=== PATIENT | female | born 1955 | race Caucasian/White ===

== ENCOUNTER 2017-10-22 08:52 | Observation (INO) | payer OTHER ==
[2017-10-22] MEDS: morphine 4 MG/ML VIAL IV (09:32)
[2017-10-22] MEDS: ONDANSETRON 4 MG INJ IV (09:32)
[2017-10-22 09:45] LABS: ADD MAN DIFF? NO
[2017-10-22 09:46] LABS: BASOPHIL # 0.1 10^3/ul (0.0-0.1); BASOPHILS % 0.6 % (0.0-2.0); EOSINOPHILS # 0.1 10^3/ul (0.0-0.5); HEMATOCRIT 45.8 % (37.0-47.0); HEMOGLOBIN 14.7 g/dl (12.0-16.0); LYMPHOCYTES # 1.8 10^3/ul (0.8-2.9); LYMPHOCYTES % 18.5 % (15.0-51.0); MEAN CORPUSCULAR HEMOGLOBIN 29.8 pg (29.0-33.0); MEAN CORPUSCULAR HGB CONC 32.1 g/dl (32.0-37.0); MEAN CORPUSCULAR VOLUME 92.7 fl (82.0-101.0); MEAN PLATELET VOLUME 10.4 fl (7.4-10.4); MONOCYTE # 0.5 10^3/ul (0.3-0.9); MONOCYTES % 4.9 % (0.0-11.0); NEUTROPHIL # 7.1 10^3/ul (1.6-7.5); NEUTROPHILS % 72.7 % (39.0-77.0); PLATELET COUNT 303 10^3/UL (140-415); RED BLOOD COUNT 4.94 10^6/ul (4.20-5.40)
[2017-10-22 09:46] LABS: WHITE BLOOD COUNT 9.7 10^3/ul (4.8-10.8)
[2017-10-22] MEDS: HYDROmorphONE 1 MG/ML SYG IV ×2 (09:51→12:31)
[2017-10-22 10:09] LABS: ALANINE AMINOTRANSFERASE 38 IU/L (13-69); ALBUMIN 4.4 g/dl (3.3-4.9); ALBUMIN/GLOBULIN RATIO 0.93; ALKALINE PHOSPHATASE 138 IU/L (42-121); ANION GAP 18 (8-16); ASPARTATE AMINO TRANSFERASE 69 IU/L (15-46); BILIRUBIN,INDIRECT 0.3 mg/dl (0-1.1); BILIRUBIN,TOTAL 0.3 mg/dl (0.2-1.3); BLOOD UREA NITROGEN 13 mg/dl (7-20); CALCIUM 11.3 mg/dl (8.4-10.2); CARBON DIOXIDE 28 mmol/L (21-31); CHLORIDE 98 mmol/L (97-110); CREATININE 1.17 mg/dl (0.44-1.00); GLUCOSE 190 mg/dl (70-220); LIPASE 38 U/L (23-300); SODIUM 139 mmol/L (135-144); TOTAL PROTEIN 9.1 g/dl (6.1-8.1)
[2017-10-22 10:27] LABS: TROPONIN-I < 0.012 ng/ml (0.00-0.12)
[2017-10-22] MEDS ORDERED: ACETAMINOPHEN 325 MG TAB PO ×2 (11:30→14:00)
[2017-10-22] MEDS ORDERED: ONDANSETRON 4 MG INJ IV ×2 (11:30→14:00)
[2017-10-22] MEDS ORDERED: ACETAMINOPHEN 1000MG/100ML IV 100 ML IVPB (12:00)
[2017-10-22] MEDS: ACETAMINOPHEN 1000MG/100ML IV 100 ML IVPB ×3 (13:56→23:59)
[2017-10-22] MEDS: DEXAMETHASONE 10 MG/ML 1 ML INJ IV ×3 (13:57→23:59)
[2017-10-22] MEDS: HYDROmorphONE 0.2 MG/ML PCA IV (13:59)
[2017-10-22] MEDS ORDERED: NACL 0.9% 3 ML SYG IV (14:00)
[2017-10-22] MEDS ORDERED: HYDROCODONE/APAP (5/325) TAB PO ×2 (14:00)
[2017-10-22] MEDS: BENAZEPRIL 20 MG TAB PO (14:00)
[2017-10-22] MEDS ORDERED: BISACODYL 10 MG SUPP PR (14:00)
[2017-10-22] MEDS ORDERED: GLUCOSE GEL 15 GRAM TUBE PO ×2 (14:00)
[2017-10-22] MEDS ORDERED: ACETAMINOPHEN 650 MG SUPP PR (14:00)
[2017-10-22] MEDS ORDERED: GLUCAGON 1 MG INJ IM (14:00)
[2017-10-22] MEDS ORDERED: DEXTROSE 50% 50 ML SYRINGE IV ×2 (14:00)
[2017-10-22] MEDS ORDERED: GLUCOSE GEL 15 GRAM TUBE BUCCAL (14:00)
[2017-10-22] MEDS ORDERED: morphine 2 MG INJ IV (14:00)
[2017-10-22] MEDS ORDERED: DOCUSATE SODIUM 100 MG CAP PO (14:00)
[2017-10-22 17:31] LABS: HEMOGLOBIN A1C 6.9 % (0-5.9)
[2017-10-22] MEDS: INSULIN ASPART [NOVOLOG] 3 ML PEN SC (18:25)
[2017-10-22] MEDS: ATORVASTATIN 20 MG TAB PO (20:36)
[2017-10-22] MEDS: GABAPENTIN 300 MG CAP PO (20:36)
[2017-10-22] MEDS: INSULIN GLARGINE [LANtus] 3 ML PEN SC (22:07)
[2017-10-23] MEDS: HYDROmorphONE 0.2 MG/ML PCA IV ×2 (00:05→11:15)
[2017-10-23] MEDS: PANTOPRAZOLE 40 MG INJ IV (05:47)
[2017-10-23] MEDS: DEXAMETHASONE 10 MG/ML 1 ML INJ IV ×3 (05:47→18:16)
[2017-10-23] MEDS: ACETAMINOPHEN 1000MG/100ML IV 100 ML IVPB ×3 (05:47→18:12)
[2017-10-23] MEDS: LEVOTHYROXINE 125 MCG TAB PO (06:02)
[2017-10-23] MEDS: INSULIN ASPART [NOVOLOG] 3 ML PEN SC ×3 (08:56→18:09)
[2017-10-23] MEDS: BENAZEPRIL 20 MG TAB PO (09:02)
[2017-10-23] MEDS: GABAPENTIN 300 MG CAP PO ×3 (09:02→21:21)
[2017-10-23] MEDS: ASPIRIN (EC) 81 MG TAB PO (09:02)
[2017-10-23 09:23] LABS: ALANINE AMINOTRANSFERASE 33 IU/L (13-69); ALBUMIN 3.7 g/dl (3.3-4.9); ALBUMIN/GLOBULIN RATIO 0.88; ALKALINE PHOSPHATASE 156 IU/L (42-121); ANION GAP 17 (8-16); ASPARTATE AMINO TRANSFERASE 95 IU/L (15-46); BILIRUBIN,INDIRECT 0.3 mg/dl (0-1.1); BILIRUBIN,TOTAL 0.3 mg/dl (0.2-1.3); BLOOD UREA NITROGEN 15 mg/dl (7-20); CALCIUM 10.2 mg/dl (8.4-10.2); CARBON DIOXIDE 24 mmol/L (21-31); CHLORIDE 100 mmol/L (97-110); CHOL/HDL RATIO 3.3 RATIO; CHOLESTEROL 137 mg/dl (100-200); CREATININE 0.84 mg/dl (0.44-1.00); GLUCOSE 196 mg/dl (70-220); HDL CHOLESTEROL 41 mg/dl (35-98); LDL CHOLESTEROL,CALCULATED 67 mg/dl; MAGNESIUM 2.1 mg/dl (1.7-2.5); PHOSPHORUS 4.4 mg/dl (2.5-4.9); SODIUM 136 mmol/L (135-144); TOTAL PROTEIN 7.9 g/dl (6.1-8.1); TRIGLYCERIDES 147 mg/dl (0-149)
[2017-10-23 09:27] LABS: HEMOGLOBIN A1C 6.8 % (0-5.9)
[2017-10-23 09:50] LABS: FREE THYROXINE INDEX (Calc) 2.82 ug/ml (0.65-3.89); T3 UPTAKE 33.2 % (23.5-40.5); T4 (THYROXINE) 8.5 ug/dl (5.5-11.0)
[2017-10-23 10:03] LABS: THYROID STIMULATING HORMONE 0.973 MIU/L (0.465-4.680)
[2017-10-23] MEDS ORDERED: METHOCARBAMOL 500 MG TAB PO (11:30)
[2017-10-23] MEDS: ATORVASTATIN 20 MG TAB PO (21:21)
[2017-10-23] MEDS: INSULIN GLARGINE [LANtus] 3 ML PEN SC (21:21)
[2017-10-23] MEDS: hydrALAzine 20 MG INJ IV (21:28)
[2017-10-24] MEDS: ACETAMINOPHEN 1000MG/100ML IV 100 ML IVPB ×5 (00:43→23:31)
[2017-10-24] MEDS: DEXAMETHASONE 10 MG/ML 1 ML INJ IV ×5 (00:43→23:31)
[2017-10-24 05:31] LABS: ADD MAN DIFF? NO
[2017-10-24 05:42] LABS: WHITE BLOOD COUNT 11.5 10^3/ul (4.8-10.8)
[2017-10-24 05:42] LABS: BASOPHILS % 0.3 % (0.0-2.0); HEMOGLOBIN 13.7 g/dl (12.0-16.0); LYMPHOCYTES # 0.9 10^3/ul (0.8-2.9); LYMPHOCYTES % 7.9 % (15.0-51.0); MEAN CORPUSCULAR HGB CONC 32.6 g/dl (32.0-37.0); MEAN CORPUSCULAR VOLUME 92.1 fl (82.0-101.0); MEAN PLATELET VOLUME 10.7 fl (7.4-10.4); MONOCYTE # 0.2 10^3/ul (0.3-0.9); MONOCYTES % 2.1 % (0.0-11.0); NEUTROPHIL # 10.1 10^3/ul (1.6-7.5); NEUTROPHILS % 87.5 % (39.0-77.0); PLATELET COUNT 280 10^3/UL (140-415); RED BLOOD COUNT 4.56 10^6/ul (4.20-5.40); RED CELL DISTRIBUTION WIDTH 13.1 % (11.5-14.5)
[2017-10-24 06:07] LABS: ANION GAP 16 (8-16); BLOOD UREA NITROGEN 17 mg/dl (7-20); CALCIUM 9.2 mg/dl (8.4-10.2); CARBON DIOXIDE 23 mmol/L (21-31); CHLORIDE 103 mmol/L (97-110); CREATININE 0.76 mg/dl (0.44-1.00); GLUCOSE 295 mg/dl (70-220); POTASSIUM 4.4 mmol/L (3.5-5.1); SODIUM 138 mmol/L (135-144)
[2017-10-24] MEDS: PANTOPRAZOLE 40 MG INJ IV (06:07)
[2017-10-24] MEDS: LEVOTHYROXINE 125 MCG TAB PO (06:12)
[2017-10-24] MEDS: BENAZEPRIL 20 MG TAB PO (09:04)
[2017-10-24] MEDS: GABAPENTIN 300 MG CAP PO ×3 (09:05→20:57)
[2017-10-24] MEDS: ASPIRIN (EC) 81 MG TAB PO (09:05)
[2017-10-24] MEDS: CELECOXIB 100 MG CAP PO ×2 (09:55→20:56)
[2017-10-24] MEDS: metFORMIN 500 MG TAB PO ×2 (09:56→17:57)
[2017-10-24] MEDS: morphine (ER) 30 MG TAB PO ×2 (09:56→20:57)
[2017-10-24] MEDS: MAGNESIUM HYDROXIDE 30ML CUP PO (09:57)
[2017-10-24] MEDS: HYDROmorphONE 2 MG TAB PO ×2 (12:16→16:11)
[2017-10-24] MEDS: NPH, HUMAN INSULIN ISOPHANE 3ML VIAL SC ×3 (12:33→23:47)
[2017-10-24 13:02] LABS: HEPATITIS B SURFACE ANTIGEN NEGATIVE (NEGATIVE)
[2017-10-24 13:19] LABS: HEPATITIS C VIRAL ANTIBODY NEGATIVE (NEGATIVE)
[2017-10-24] MEDS: INSULIN ASPART [NOVOLOG] 3 ML PEN SC ×2 (14:35→18:07)
[2017-10-24] MEDS: ATORVASTATIN 20 MG TAB PO (20:57)
[2017-10-24] MEDS: INSULIN GLARGINE [LANtus] 3 ML PEN SC (21:05)
[2017-10-25] MEDS: ACETAMINOPHEN 1000MG/100ML IV 100 ML IVPB ×4 (05:35→23:04)
[2017-10-25] MEDS: PANTOPRAZOLE 40 MG INJ IV (05:35)
[2017-10-25] MEDS: DEXAMETHASONE 10 MG/ML 1 ML INJ IV ×2 (05:35→20:47)
[2017-10-25] MEDS: NPH, HUMAN INSULIN ISOPHANE 3ML VIAL SC ×2 (05:48→12:00)
[2017-10-25 05:56] LABS: ANION GAP 18 (8-16); BLOOD UREA NITROGEN 19 mg/dl (7-20); CALCIUM 10.2 mg/dl (8.4-10.2); CARBON DIOXIDE 27 mmol/L (21-31); CHLORIDE 101 mmol/L (97-110); CREATININE 0.71 mg/dl (0.44-1.00); GLUCOSE 149 mg/dl (70-220); POTASSIUM 4.7 mmol/L (3.5-5.1); SODIUM 141 mmol/L (135-144)
[2017-10-25] MEDS: LEVOTHYROXINE 125 MCG TAB PO (06:07)
[2017-10-25] MEDS: CELECOXIB 100 MG CAP PO ×2 (09:27→20:47)
[2017-10-25] MEDS: metFORMIN 500 MG TAB PO ×2 (09:27→17:39)
[2017-10-25] MEDS: GABAPENTIN 300 MG CAP PO ×3 (09:27→20:47)
[2017-10-25] MEDS: ASPIRIN (EC) 81 MG TAB PO (09:27)
[2017-10-25] MEDS: morphine (ER) 30 MG TAB PO ×2 (09:27→20:47)
[2017-10-25] MEDS: BENAZEPRIL 20 MG TAB PO (09:28)
[2017-10-25] MEDS: INSULIN ASPART [NOVOLOG] 3 ML PEN SC ×3 (09:29→17:40)
[2017-10-25] MEDS: ATORVASTATIN 20 MG TAB PO (20:47)
[2017-10-25] MEDS ORDERED: NPH, HUMAN INSULIN ISOPHANE 3ML VIAL SC (21:00)
[2017-10-26] MEDS: ACETAMINOPHEN 1000MG/100ML IV 100 ML IVPB ×2 (05:03→12:42)
[2017-10-26] MEDS: PANTOPRAZOLE (EC) 40 MG TAB PO (05:03)
[2017-10-26] MEDS: LEVOTHYROXINE 125 MCG TAB PO (05:04)
[2017-10-26 06:45] LABS: ANION GAP 17 (8-16); BLOOD UREA NITROGEN 24 mg/dl (7-20); CALCIUM 9.8 mg/dl (8.4-10.2); CARBON DIOXIDE 26 mmol/L (21-31); CHLORIDE 101 mmol/L (97-110); CREATININE 0.83 mg/dl (0.44-1.00); GLUCOSE 165 mg/dl (70-220); POTASSIUM 4.5 mmol/L (3.5-5.1); SODIUM 139 mmol/L (135-144)
[2017-10-26] MEDS: ASPIRIN (EC) 81 MG TAB PO (09:07)
[2017-10-26] MEDS: GABAPENTIN 300 MG CAP PO ×2 (09:07→12:41)
[2017-10-26] MEDS: metFORMIN 500 MG TAB PO (09:07)
[2017-10-26] MEDS: DEXAMETHASONE 10 MG/ML 1 ML INJ IV (09:08)
[2017-10-26] MEDS: BENAZEPRIL 20 MG TAB PO (09:08)
[2017-10-26] MEDS: CELECOXIB 100 MG CAP PO (09:08)
[2017-10-26] MEDS: INSULIN ASPART [NOVOLOG] 3 ML PEN SC ×2 (09:10→12:42)
[2017-10-26] MEDS: morphine (ER) 30 MG TAB PO (09:42)
[2017-10-26] MEDS: HYDROmorphONE 2 MG TAB PO (15:12)
== END 2017-10-26 15:45 | disposition home or self-care (01) ==
LOC: E/R 08:52 → MS1 11:22
DX: M54.5 Low back pain (principal); C50.912 Malignant neoplasm of unspecified site of left female breast; Z95.0 Presence of cardiac pacemaker; I10 Essential (primary) hypertension; E11.9 Type 2 diabetes mellitus without complications; E78.5 Hyperlipidemia, unspecified
CPT/HCPCS: 36415; 72128; 72131; 74176; 78306; 80048; 80053; 80061; 82962; 83036; 83690; 83735; 84100; 84436; 84443; 84479; 84484; 85025; 86803; 87340; 93005; 96374; 96375; 96376; 97162; 99285-25; A9503

== ENCOUNTER 2017-10-27 16:02 | Inpatient (IN) | payer OTHER ==
[2017-10-27 19:10] LABS: URINE PH (Dip) POC 5.5 (5.0-8.5)
[2017-10-27 19:10] LABS: URINE BLOOD (Dip) POC 2+ (NEGATIVE); URINE KETONES (Dip) POC Negative (NEGATIVE); URINE LEUKOCYTE EST (Dip) POC Negative (NEGATIVE); URINE NITRITE (Dip) POC Negative (NEGATIVE); URINE TOTAL PROTEIN POC 2+ (NEGATIVE)
[2017-10-27] MEDS: HYDROmorphONE 1 MG/ML SYG IV ×2 (19:20→20:57)
[2017-10-27] MEDS: ONDANSETRON 4 MG INJ IV ×2 (19:20→20:57)
[2017-10-27] MEDS: SOD CHLORIDE 0.9% 1,000 ML IV (19:20)
[2017-10-27 19:27] LABS: ADD MAN DIFF? NO
[2017-10-27 19:29] LABS: BASOPHILS % 0.3 % (0.0-2.0); HEMATOCRIT 41.8 % (37.0-47.0); HEMOGLOBIN 13.7 g/dl (12.0-16.0); LYMPHOCYTES # 1.8 10^3/ul (0.8-2.9); LYMPHOCYTES % 15.6 % (15.0-51.0); MEAN CORPUSCULAR HEMOGLOBIN 29.5 pg (29.0-33.0); MEAN CORPUSCULAR HGB CONC 32.8 g/dl (32.0-37.0); MEAN CORPUSCULAR VOLUME 90.1 fl (82.0-101.0); MEAN PLATELET VOLUME 11.1 fl (7.4-10.4); MONOCYTE # 0.6 10^3/ul (0.3-0.9); MONOCYTES % 5.2 % (0.0-11.0); NEUTROPHIL # 8.8 10^3/ul (1.6-7.5); NEUTROPHILS % 75.6 % (39.0-77.0); NUCLEATED RED BLOOD CELLS # 0.1 10^3/ul (0.0-0.0); NUCLEATED RED BLOOD CELLS% 0.4 /100WBC (0.0-0.0); PLATELET COUNT 197 10^3/UL (140-415); RED BLOOD COUNT 4.64 10^6/ul (4.20-5.40); RED CELL DISTRIBUTION WIDTH 13.2 % (11.5-14.5)
[2017-10-27 19:29] LABS: WHITE BLOOD COUNT 11.6 10^3/ul (4.8-10.8)
[2017-10-27 19:36] LABS: ADD UMIC YES; UR ASCORBIC ACID NEGATIVE (NEGATIVE); UR BILIRUBIN (Dip) NEGATIVE (NEGATIVE); UR BLOOD (Dip) 1+ mg/dL (NEGATIVE); UR CLARITY CLEAR (CLEAR); UR COLOR YELLOW (YELLOW); UR GLUCOSE (Dip) 1+ mg/dL (NEGATIVE); UR KETONES (Dip) NEGATIVE (NEGATIVE); UR LEUKOCYTE ESTERASE (Dip) NEGATIVE Leu/ul (NEGATIVE); UR NITRITE (Dip) NEGATIVE (NEGATIVE); UR RBC 2 /HPF (0-5); UR SPECIFIC GRAVITY (Dip) 1.019 (1.003-1.030); UR TOTAL PROTEIN (Dip) NEGATIVE (NEGATIVE); UR UROBILINOGEN (Dip) NEGATIVE (NEGATIVE); UR WBC 1 /HPF (0-5)
[2017-10-27 19:51] LABS: ALANINE AMINOTRANSFERASE 43 IU/L (13-69); ALBUMIN 3.7 g/dl (3.3-4.9); ALBUMIN/GLOBULIN RATIO 1.08; ALKALINE PHOSPHATASE 214 IU/L (42-121); ANION GAP 14 (8-16); ASPARTATE AMINO TRANSFERASE 59 IU/L (15-46); BILIRUBIN,INDIRECT 0.6 mg/dl (0-1.1); BILIRUBIN,TOTAL 0.6 mg/dl (0.2-1.3); BLOOD UREA NITROGEN 24 mg/dl (7-20); CALCIUM 10.1 mg/dl (8.4-10.2); CARBON DIOXIDE 28 mmol/L (21-31); CHLORIDE 93 mmol/L (97-110); CREATININE 0.82 mg/dl (0.44-1.00); GLUCOSE 236 mg/dl (70-220); POTASSIUM 4.2 mmol/L (3.5-5.1); SODIUM 131 mmol/L (135-144); TOTAL PROTEIN 7.1 g/dl (6.1-8.1)
[2017-10-27] MEDS ORDERED: SOD CHLORIDE 0.9% 1,000 ML IV (21:54)
[2017-10-27] MEDS ORDERED: ONDANSETRON 4 MG INJ IV (22:00)
[2017-10-27] MEDS ORDERED: ACETAMINOPHEN 325 MG TAB PO ×2 (22:00→22:30)
[2017-10-27] MEDS: LORAZEPAM 0.5 MG TAB PO (22:25)
[2017-10-27] MEDS ORDERED: NACL 0.9% 3 ML SYG IV (22:30)
[2017-10-27] MEDS ORDERED: ONDANSETRON 4 MG TAB PO (22:30)
[2017-10-27] MEDS: HYDROmorphONE 0.5 MG/0.5 ML SYG IV (23:05)
[2017-10-27] MEDS: DOCUSATE SODIUM 100 MG CAP PO (23:36)
[2017-10-27] MEDS ORDERED: GLUCOSE GEL 15 GRAM TUBE BUCCAL (23:45)
[2017-10-27] MEDS ORDERED: DEXTROSE 50% 50 ML SYRINGE IV ×2 (23:45)
[2017-10-27] MEDS ORDERED: GLUCAGON 1 MG INJ IM (23:45)
[2017-10-27] MEDS ORDERED: GLUCOSE GEL 15 GRAM TUBE PO ×2 (23:45)
[2017-10-28] MEDS: ACCU-CHEK XX (01:40)
[2017-10-28] MEDS: HYDROCODONE/APAP (10/325) TAB PO ×3 (01:40→20:50)
[2017-10-28] MEDS: HYDROmorphONE 0.5 MG/0.5 ML SYG IV ×4 (04:58→17:41)
[2017-10-28] MEDS: GABAPENTIN 300 MG CAP PO ×4 (05:56→20:51)
[2017-10-28] MEDS ORDERED: CELECOXIB 100 MG CAP PO (06:00)
[2017-10-28] MEDS ORDERED: METHOCARBAMOL 500 MG TAB PO (06:00)
[2017-10-28 06:40] LABS: ADD MAN DIFF? NO
[2017-10-28 06:41] LABS: WHITE BLOOD COUNT 9.3 10^3/ul (4.8-10.8)
[2017-10-28 06:41] LABS: BASOPHILS % 0.2 % (0.0-2.0); EOSINOPHILS % 0.1 % (0.0-7.0); HEMATOCRIT 39.4 % (37.0-47.0); LYMPHOCYTES # 1.2 10^3/ul (0.8-2.9); MEAN CORPUSCULAR HEMOGLOBIN 29.7 pg (29.0-33.0); MEAN PLATELET VOLUME 10.8 fl (7.4-10.4); MONOCYTE # 0.5 10^3/ul (0.3-0.9); NEUTROPHIL # 7.3 10^3/ul (1.6-7.5); NEUTROPHILS % 78.7 % (39.0-77.0); NUCLEATED RED BLOOD CELLS% 0.2 /100WBC (0.0-0.0); PLATELET COUNT 157 10^3/UL (140-415); RED BLOOD COUNT 4.38 10^6/ul (4.20-5.40); RED CELL DISTRIBUTION WIDTH 13.2 % (11.5-14.5)
[2017-10-28 07:05] LABS: ALANINE AMINOTRANSFERASE 41 IU/L (13-69); ALBUMIN 2.9 g/dl (3.3-4.9); ALBUMIN/GLOBULIN RATIO 1.03; ALKALINE PHOSPHATASE 205 IU/L (42-121); ANION GAP 12 (8-16); ASPARTATE AMINO TRANSFERASE 69 IU/L (15-46); BILIRUBIN,INDIRECT 0.7 mg/dl (0-1.1); BILIRUBIN,TOTAL 0.7 mg/dl (0.2-1.3); BLOOD UREA NITROGEN 17 mg/dl (7-20); CALCIUM 9.4 mg/dl (8.4-10.2); CARBON DIOXIDE 29 mmol/L (21-31); CHLORIDE 98 mmol/L (97-110); CREATININE 0.64 mg/dl (0.44-1.00); GLUCOSE 230 mg/dl (70-220); MAGNESIUM 1.7 mg/dl (1.7-2.5); POTASSIUM 4.6 mmol/L (3.5-5.1); SODIUM 134 mmol/L (135-144); TOTAL PROTEIN 5.7 g/dl (6.1-8.1)
[2017-10-28 07:12] LABS: CREATINE KINASE 171 IU/L (23-200)
[2017-10-28] MEDS: LEVOTHYROXINE 125 MCG TAB PO (08:00)
[2017-10-28] MEDS: INSULIN ASPART [NOVOLOG] 3 ML PEN SC ×6 (08:36→20:55)
[2017-10-28] MEDS: BENAZEPRIL 20 MG TAB PO (09:05)
[2017-10-28] MEDS: BISACODYL (EC) 5 MG TAB PO (09:05)
[2017-10-28] MEDS: PANTOPRAZOLE (EC) 40 MG TAB PO (09:06)
[2017-10-28] MEDS: DOCUSATE SODIUM 100 MG CAP PO ×2 (09:06→22:30)
[2017-10-28] MEDS: ATORVASTATIN 10 MG TAB PO (20:50)
[2017-10-28] MEDS: INSULIN GLARGINE [LANtus] 3 ML PEN SC (20:54)
[2017-10-29] MEDS: ACCU-CHEK XX (02:00)
[2017-10-29] MEDS: HYDROmorphONE 0.5 MG/0.5 ML SYG IV ×2 (02:23→08:50)
[2017-10-29] MEDS: HYDROCODONE/APAP (10/325) TAB PO (04:52)
[2017-10-29 05:54] LABS: ADD MAN DIFF? NO
[2017-10-29 06:01] LABS: WHITE BLOOD COUNT 9.3 10^3/ul (4.8-10.8)
[2017-10-29 06:01] LABS: BASOPHILS % 0.2 % (0.0-2.0); EOSINOPHILS % 0.2 % (0.0-7.0); HEMATOCRIT 37.8 % (37.0-47.0); HEMOGLOBIN 12.6 g/dl (12.0-16.0); LYMPHOCYTES # 1.4 10^3/ul (0.8-2.9); LYMPHOCYTES % 15.6 % (15.0-51.0); MEAN CORPUSCULAR HEMOGLOBIN 29.9 pg (29.0-33.0); MEAN CORPUSCULAR HGB CONC 33.3 g/dl (32.0-37.0); MEAN CORPUSCULAR VOLUME 89.6 fl (82.0-101.0); MEAN PLATELET VOLUME 12.2 fl (7.4-10.4); MONOCYTE # 0.5 10^3/ul (0.3-0.9); MONOCYTES % 5.4 % (0.0-11.0); PLATELET COUNT 200 10^3/UL (140-415); RED BLOOD COUNT 4.22 10^6/ul (4.20-5.40); RED CELL DISTRIBUTION WIDTH 13.4 % (11.5-14.5)
[2017-10-29 06:21] LABS: ALBUMIN 3.1 g/dl (3.3-4.9); ANION GAP 12 (8-16); BLOOD UREA NITROGEN 12 mg/dl (7-20); CALCIUM 9.4 mg/dl (8.4-10.2); CARBON DIOXIDE 29 mmol/L (21-31); CHLORIDE 94 mmol/L (97-110); GLUCOSE 141 mg/dl (70-220); MAGNESIUM 1.6 mg/dl (1.7-2.5); PHOSPHORUS 4.7 mg/dl (2.5-4.9); POTASSIUM 4.6 mmol/L (3.5-5.1); SODIUM 130 mmol/L (135-144)
[2017-10-29] MEDS: LEVOTHYROXINE 125 MCG TAB PO (07:53)
[2017-10-29] MEDS: PANTOPRAZOLE (EC) 40 MG TAB PO (07:53)
[2017-10-29] MEDS: INSULIN ASPART [NOVOLOG] 3 ML PEN SC ×6 (08:03→22:08)
[2017-10-29] MEDS: BENAZEPRIL 20 MG TAB PO (08:49)
[2017-10-29] MEDS: BISACODYL (EC) 5 MG TAB PO (08:49)
[2017-10-29] MEDS: GABAPENTIN 300 MG CAP PO ×3 (08:49→22:04)
[2017-10-29] MEDS: DOCUSATE SODIUM 100 MG CAP PO ×2 (08:49→22:04)
[2017-10-29] MEDS: CYANOCOBALAMIN 500 MCG TAB PO (12:28)
[2017-10-29] MEDS: METHYLPREDNISOLONE 125 MG INJ IV ×2 (12:28→17:18)
[2017-10-29 13:16] LABS: OSMOLALITY 275 mOsm/kg (280-295)
[2017-10-29 15:01] LABS: CREATINE KINASE 179 IU/L (23-200)
[2017-10-29 15:13] LABS: CK INDEX 0.1; CK-MB 0.25 ng/ml (0.0-2.4); TROPONIN-I 0.029 ng/ml (0.00-0.12)
[2017-10-29] MEDS: CHOLECALCIFEROL 2,000 UNIT CAP PO (17:17)
[2017-10-29 18:30] LABS: POTASSIUM,URINE RANDOM 9.8 mmol/L (25-125)
[2017-10-29 18:30] LABS: SODIUM,URINE RANDOM 14 mmol/L (30-90)
[2017-10-29 18:49] LABS: FREE THYROXINE INDEX (Calc) 3.02 ug/ml (0.65-3.89); T3 UPTAKE 39.7 % (23.5-40.5); T4 (THYROXINE) 7.6 ug/dl (5.5-11.0)
[2017-10-29] MEDS: INSULIN GLARGINE [LANtus] 3 ML PEN SC (22:08)
[2017-10-29 23:03] LABS: OSMOLALITY,URINE 172 mOsm/kg (250-1200)
[2017-10-30] MEDS: METHYLPREDNISOLONE 125 MG INJ IV ×3 (01:02→12:34)
[2017-10-30] MEDS: ACCU-CHEK XX (02:00)
[2017-10-30] MEDS: LEVOTHYROXINE 125 MCG TAB PO (06:08)
[2017-10-30 06:21] LABS: ADD MAN DIFF? NO
[2017-10-30 06:31] LABS: BASOPHILS % 0.2 % (0.0-2.0); HEMATOCRIT 41.7 % (37.0-47.0); HEMOGLOBIN 13.8 g/dl (12.0-16.0); LYMPHOCYTES # 0.7 10^3/ul (0.8-2.9); LYMPHOCYTES % 7.3 % (15.0-51.0); MEAN CORPUSCULAR HEMOGLOBIN 29.7 pg (29.0-33.0); MEAN CORPUSCULAR HGB CONC 33.1 g/dl (32.0-37.0); MEAN CORPUSCULAR VOLUME 89.9 fl (82.0-101.0); MEAN PLATELET VOLUME 11.3 fl (7.4-10.4); MONOCYTE # 0.2 10^3/ul (0.3-0.9); MONOCYTES % 1.8 % (0.0-11.0); NEUTROPHIL # 8.1 10^3/ul (1.6-7.5); PLATELET COUNT 169 10^3/UL (140-415); RED BLOOD COUNT 4.64 10^6/ul (4.20-5.40); RED CELL DISTRIBUTION WIDTH 13.2 % (11.5-14.5)
[2017-10-30 06:31] LABS: WHITE BLOOD COUNT 9.5 10^3/ul (4.8-10.8)
[2017-10-30 07:13] LABS: ALBUMIN 3.3 g/dl (3.3-4.9); ANION GAP 19 (8-16); BLOOD UREA NITROGEN 17 mg/dl (7-20); CALCIUM 10.4 mg/dl (8.4-10.2); CARBON DIOXIDE 30 mmol/L (21-31); CHLORIDE 96 mmol/L (97-110); CREATININE 0.68 mg/dl (0.44-1.00); GLUCOSE 241 mg/dl (70-220); MAGNESIUM 1.9 mg/dl (1.7-2.5); PHOSPHORUS 5.1 mg/dl (2.5-4.9); POTASSIUM 4.7 mmol/L (3.5-5.1); SODIUM 140 mmol/L (135-144)
[2017-10-30] MEDS: INSULIN ASPART [NOVOLOG] 3 ML PEN SC ×6 (08:08→22:11)
[2017-10-30] MEDS: BISACODYL (EC) 5 MG TAB PO (08:57)
[2017-10-30] MEDS: CHOLECALCIFEROL 2,000 UNIT CAP PO (08:57)
[2017-10-30] MEDS: PANTOPRAZOLE (EC) 40 MG TAB PO (08:57)
[2017-10-30] MEDS: GABAPENTIN 300 MG CAP PO ×3 (08:57→21:56)
[2017-10-30] MEDS: DOCUSATE SODIUM 100 MG CAP PO ×2 (08:57→21:52)
[2017-10-30] MEDS: BENAZEPRIL 20 MG TAB PO (08:58)
[2017-10-30] MEDS: CYANOCOBALAMIN 500 MCG TAB PO (08:58)
[2017-10-30] MEDS: INSULIN GLARGINE [LANtus] 3 ML PEN SC (22:00)
[2017-10-31] MEDS: ACCU-CHEK XX (02:38)
[2017-10-31] MEDS: HYDROCODONE/APAP (10/325) TAB PO (05:46)
[2017-10-31 06:30] LABS: ABNORMAL IP MESSAGE 1; HEMATOCRIT 38.4 % (37.0-47.0); MEAN CORPUSCULAR HGB CONC 33.9 g/dl (32.0-37.0); MEAN CORPUSCULAR VOLUME 88.5 fl (82.0-101.0); MEAN PLATELET VOLUME 11.5 fl (7.4-10.4); PLATELET COUNT 192 10^3/UL (140-415); RED BLOOD COUNT 4.34 10^6/ul (4.20-5.40); RED CELL DISTRIBUTION WIDTH 13.4 % (11.5-14.5)
[2017-10-31 06:30] LABS: WHITE BLOOD COUNT 11.8 10^3/ul (4.8-10.8)
[2017-10-31] MEDS: LEVOTHYROXINE 125 MCG TAB PO (06:39)
[2017-10-31 07:10] LABS: ALBUMIN 3.1 g/dl (3.3-4.9); ANION GAP 15 (8-16); BLOOD UREA NITROGEN 19 mg/dl (7-20); CALCIUM 10.3 mg/dl (8.4-10.2); CARBON DIOXIDE 30 mmol/L (21-31); CHLORIDE 99 mmol/L (97-110); GLUCOSE 173 mg/dl (70-220); MAGNESIUM 1.9 mg/dl (1.7-2.5); PHOSPHORUS 3.5 mg/dl (2.5-4.9); POTASSIUM 4.2 mmol/L (3.5-5.1); SODIUM 140 mmol/L (135-144)
[2017-10-31 07:21] LABS: ADD MAN DIFF? YES; POSITIVE DIFF @See below
[2017-10-31] MEDS: INSULIN ASPART [NOVOLOG] 3 ML PEN SC ×6 (08:15→20:17)
[2017-10-31] MEDS: BENAZEPRIL 20 MG TAB PO (08:17)
[2017-10-31] MEDS: BISACODYL (EC) 5 MG TAB PO (08:17)
[2017-10-31] MEDS: PANTOPRAZOLE (EC) 40 MG TAB PO (08:17)
[2017-10-31] MEDS: CHOLECALCIFEROL 2,000 UNIT CAP PO (08:18)
[2017-10-31] MEDS: predniSONE 20 MG TAB PO (08:18)
[2017-10-31] MEDS: GABAPENTIN 300 MG CAP PO ×3 (08:18→20:11)
[2017-10-31] MEDS: CYANOCOBALAMIN 500 MCG TAB PO (08:18)
[2017-10-31 09:57] LABS: BAND NEUTROPHILS #M 0.5 10^3/ul (0.0-0.6); BAND NEUTROPHILS % (M) 5 % (0-4); LYMPHOCYTES % (M) 9 % (15-51); METAMYELOCYTES #M 0.2 10^3/ul (0.0-0.0); METAMYELOCYTES %M 2 % (0-0); MONOCYTE #M 0.3 10^3/ul (0.3-0.9); MONOCYTES % (M) 3 % (0-11); MYELOCYTES #M 0.1 10^3/ul (0.0-0.0); MYELOCYTES % (M) 1 % (0-0); PLATELET ESTIMATE NORMAL; POLYCHROMASIA 1+ (0-0); REACTIVE LYMPHOCYTES #M 0.1 10^3/ul (0.0-0.0); REACTIVE LYMPHOCYTES% (M) 1 % (0-0); SEG NEUT #M 9.4 10^3/ul (1.7-7.5); SEGMENTED NEUTROPHILS (M) % 79 % (39-77); SMUDGE%M 4 % (0-0)
[2017-10-31] MEDS: DOCUSATE SODIUM 100 MG CAP PO ×2 (10:30→22:30)
[2017-10-31] MEDS: HYDROmorphONE 0.5 MG/0.5 ML SYG IV ×2 (12:03→20:05)
[2017-10-31] MEDS: METHYLPREDNISOLONE 40 MG INJ IV ×2 (15:22→20:06)
[2017-10-31] MEDS: INSULIN GLARGINE [LANtus] 3 ML PEN SC (20:18)
[2017-11-01] MEDS: hydrALAzine 20 MG INJ IV ×2 (01:43→17:03)
[2017-11-01] MEDS: HYDROmorphONE 0.5 MG/0.5 ML SYG IV ×4 (01:50→21:33)
[2017-11-01] MEDS: ACCU-CHEK XX (01:56)
[2017-11-01] MEDS: LEVOTHYROXINE 125 MCG TAB PO (06:30)
[2017-11-01] MEDS: INSULIN ASPART [NOVOLOG] 3 ML PEN SC ×6 (08:27→21:00)
[2017-11-01] MEDS: BENAZEPRIL 20 MG TAB PO (08:41)
[2017-11-01] MEDS: GABAPENTIN 300 MG CAP PO ×3 (08:42→21:19)
[2017-11-01] MEDS: CYANOCOBALAMIN 500 MCG TAB PO (08:42)
[2017-11-01] MEDS: PANTOPRAZOLE (EC) 40 MG TAB PO (08:42)
[2017-11-01] MEDS: CHOLECALCIFEROL 2,000 UNIT CAP PO (08:42)
[2017-11-01] MEDS: BISACODYL (EC) 5 MG TAB PO (08:43)
[2017-11-01] MEDS: METHYLPREDNISOLONE 40 MG INJ IV ×2 (08:44→21:19)
[2017-11-01] MEDS: HYDROCODONE/APAP (10/325) TAB PO ×2 (09:45→17:00)
[2017-11-01] MEDS: DOCUSATE SODIUM 100 MG CAP PO ×2 (10:30→21:20)
[2017-11-01] MEDS: CALCIUM/VITAMIN D (500/200) TAB PO (15:46)
[2017-11-01] MEDS: LIDOCAINE 5% PATCH TD (15:48)
[2017-11-01] MEDS: INSULIN GLARGINE [LANtus] 3 ML PEN SC (21:32)
[2017-11-02] MEDS: ACCU-CHEK XX (02:00)
[2017-11-02] MEDS: HYDROmorphONE 0.5 MG/0.5 ML SYG IV (03:10)
[2017-11-02] MEDS: LEVOTHYROXINE 125 MCG TAB PO (06:18)
[2017-11-02] MEDS: HYDROCODONE/APAP (10/325) TAB PO ×2 (06:22→20:17)
[2017-11-02] MEDS: PANTOPRAZOLE (EC) 40 MG TAB PO (08:11)
[2017-11-02] MEDS: METHYLPREDNISOLONE 40 MG INJ IV (08:12)
[2017-11-02] MEDS: INSULIN ASPART [NOVOLOG] 3 ML PEN SC ×6 (08:12→20:31)
[2017-11-02] MEDS: CHOLECALCIFEROL 2,000 UNIT CAP PO (08:13)
[2017-11-02] MEDS: CYANOCOBALAMIN 500 MCG TAB PO (08:13)
[2017-11-02] MEDS: BISACODYL (EC) 5 MG TAB PO (08:13)
[2017-11-02] MEDS: CALCIUM/VITAMIN D (500/200) TAB PO (08:13)
[2017-11-02] MEDS: GABAPENTIN 300 MG CAP PO ×3 (08:14→20:16)
[2017-11-02] MEDS: BENAZEPRIL 20 MG TAB PO (08:14)
[2017-11-02] MEDS: LIDOCAINE 5% PATCH TD (08:19)
[2017-11-02] MEDS: DOCUSATE SODIUM 100 MG CAP PO ×2 (11:07→22:15)
[2017-11-02] MEDS: predniSONE 20 MG TAB PO (12:30)
[2017-11-02] MEDS: CYCLOBENZAPRINE 10 MG TAB PO ×2 (12:30→20:16)
[2017-11-02 12:56] LABS: C-REACTIVE PROTEIN 2.2 mg/dl (0.0-0.9)
[2017-11-02 14:18] LABS: ERYTHROCYTE SEDIMENTATION RATE 27 mm/Hr (0-30)
[2017-11-02] MEDS: INSULIN GLARGINE [LANtus] 3 ML PEN SC (20:31)
[2017-11-03] MEDS: ACCU-CHEK XX (02:31)
[2017-11-03] MEDS: HYDROCODONE/APAP (10/325) TAB PO (04:02)
[2017-11-03] MEDS: LEVOTHYROXINE 125 MCG TAB PO (06:30)
[2017-11-03 06:45] LABS: ABNORMAL IP MESSAGE 1; HEMATOCRIT 40.5 % (37.0-47.0); HEMOGLOBIN 13.7 g/dl (12.0-16.0); MEAN CORPUSCULAR HEMOGLOBIN 30.2 pg (29.0-33.0); MEAN CORPUSCULAR HGB CONC 33.8 g/dl (32.0-37.0); MEAN CORPUSCULAR VOLUME 89.4 fl (82.0-101.0); MEAN PLATELET VOLUME 11.2 fl (7.4-10.4); NUCLEATED RED BLOOD CELLS% 0.3 /100WBC (0.0-0.0); PLATELET COUNT 170 10^3/UL (140-415); RED BLOOD COUNT 4.53 10^6/ul (4.20-5.40); RED CELL DISTRIBUTION WIDTH 13.7 % (11.5-14.5)
[2017-11-03 06:49] LABS: POSITIVE DIFF @See below
[2017-11-03 06:50] LABS: ADD MAN DIFF? YES
[2017-11-03 07:09] LABS: ANION GAP 16 (8-16); BLOOD UREA NITROGEN 19 mg/dl (7-20); CALCIUM 9.8 mg/dl (8.4-10.2); CARBON DIOXIDE 30 mmol/L (21-31); CHLORIDE 98 mmol/L (97-110); CREATININE 0.77 mg/dl (0.44-1.00); GLUCOSE 81 mg/dl (70-220); MAGNESIUM 2.1 mg/dl (1.7-2.5); POTASSIUM 4.2 mmol/L (3.5-5.1); SODIUM 140 mmol/L (135-144)
[2017-11-03 07:47] LABS: BAND NEUTROPHILS #M 0.1 10^3/ul (0.0-0.6); BAND NEUTROPHILS % (M) 1 % (0-4); BURR CELLS 1+ (0-0); ERYTHROBLAST% (NRBC) (M) 1 % (0-0); LYMPHOCYTES #M 1.8 10^3/ul (0.8-2.9); LYMPHOCYTES % (M) 13 % (15-51); MONOCYTE #M 0.9 10^3/ul (0.3-0.9); MONOCYTES % (M) 7 % (0-11); PLATELET ESTIMATE NORMAL; POIKILOCYTOSIS 1+ (0-0); POLYCHROMASIA 1+ (0-0); REACTIVE LYMPHOCYTES #M 0.2 10^3/ul (0.0-0.0); REACTIVE LYMPHOCYTES% (M) 2 % (0-0); SEG NEUT #M 10.8 10^3/ul (1.7-7.5); SEGMENTED NEUTROPHILS (M) % 77 % (39-77); SMUDGE%M 11 % (0-0)
[2017-11-03] MEDS: INSULIN ASPART [NOVOLOG] 3 ML PEN SC ×2 (08:05→08:15)
[2017-11-03] MEDS: GABAPENTIN 300 MG CAP PO (08:25)
[2017-11-03] MEDS: CALCIUM/VITAMIN D (500/200) TAB PO (08:25)
[2017-11-03] MEDS: BISACODYL (EC) 5 MG TAB PO (08:26)
[2017-11-03] MEDS: PANTOPRAZOLE (EC) 40 MG TAB PO (08:26)
[2017-11-03] MEDS: CHOLECALCIFEROL 2,000 UNIT CAP PO (08:26)
[2017-11-03] MEDS: CYANOCOBALAMIN 500 MCG TAB PO (08:26)
[2017-11-03] MEDS: predniSONE 20 MG TAB PO (08:28)
[2017-11-03] MEDS: CYCLOBENZAPRINE 10 MG TAB PO (08:28)
[2017-11-03] MEDS: BENAZEPRIL 20 MG TAB PO (08:28)
[2017-11-03] MEDS: LIDOCAINE 5% PATCH TD (08:30)
[2017-11-03] MEDS: DOCUSATE SODIUM 100 MG CAP PO (10:30)
[2017-11-04] MEDS ORDERED: BENAZEPRIL 20 MG TAB PO (09:00)
== END 2017-11-03 12:30 | disposition home or self-care (01) | DRG 552 ==
LOC: MS2 22:31 → E/R 16:02 → MS2 10-28 21:19
DX: M54.30 Sciatica, unspecified side (principal); C50.919 Malignant neoplasm of unspecified site of unspecified female breast; I10 Essential (primary) hypertension; M35.3 Polymyalgia rheumatica; E11.9 Type 2 diabetes mellitus without complications; E03.9 Hypothyroidism, unspecified; Z95.0 Presence of cardiac pacemaker; E78.5 Hyperlipidemia, unspecified; E53.8 Deficiency of other specified B group vitamins; E55.9 Vitamin D deficiency, unspecified; Z87.891 Personal history of nicotine dependence
CPT/HCPCS: 36415; 70450; 71010; 80048; 80053; 80069; 81001; 81003; 82306; 82550; 82553; 82607; 82652; 82962; 83735; 83930; 83935; 84100; 84133; 84300; 84436; 84443; 84479; 84484; 85025; 85651; 86140; 87081; 93970; 96374; 96375; 96376; 97162; 99285-25